=== PATIENT | female | born 2005 | race Caucasian/White ===

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

== ENCOUNTER → 2024-05-21 | Outpatient (CLI) | payer OTHER, SELFPAY ==
[2024-05-24 08:14] LABS: Chlamydia By Nucleic Acid AMP Negative (Negative); Gonococcus By Nucleic Acid AMP Negative (Negative)
== END | disposition home or self-care (01) ==
PROVIDERS: PCP Family Medicine; Referring Provider Obstetrics & Gynecology; Visit Provider Obstetrics & Gynecology
DX: Z34.00 Encounter for supervision of normal first pregnancy, unspecified trimester (principal)
CPT/HCPCS: 87086; 87491; 87591

== ENCOUNTER → 2024-05-28 | Outpatient (CLI) | payer OTHER, SELFPAY ==
[2024-05-28 12:22] LABS: Absolute Lymphocyte Count 1.53 X10^3/uL (0.83-4.51); Absolute Neutrophil Count 5.5 X10^3/uL (2.0-7.7); Basophil# 0.03 X10^3/uL; Basophil% 0.4 % (0-1); Eosinophils% 1.3 % (0-5); Hematocrit 38.9 % (37-47); Hemoglobin 12.9 g/dL (12.0-15.0); Lymphocyte # 1.53 X10^3/ul (0.83-4.51); Lymphocyte % 20.1 % (19-41); Mean Corp Hgb Conc 33.2 g/dL (32-36); Mean Corpuscular Volume 84.6 fL (81-99); Mean Platelet Vol. 8.7 fl (6.2-12.0); Monocyte# 0.38 X10^3/uL; NRBC Flagged by Analyzer 0 % (0-5); Neutrophil # 5.53 X10^3/uL (2.7-7.7); Neutrophil % 72.8 % (47-70); Platelet Count 273 K/mm3 (150-450); RBC Distribution Width CV 15.1 % (11.6-14.6); RBC Distribution Width SD 46.8 fl (35.1-43.9); White Blood Count 7.6 K/mm3 (4.4-11.0)
[2024-05-28 13:39] LABS: HIV - WCH Non-Reactive (Nonreactive); Hepatitis B Surface Antigen Non-Reactive (Nonreactive); Hepatitis C Antibody Non-Reactive (Nonreactive); Rubella IgG Reactive (Nonreactive); Syphilis Antibodies Non-reactive
== END | disposition home or self-care (01) ==
LOC: LAB 11:23
PROVIDERS: PCP Family Medicine; Referring Provider Obstetrics & Gynecology; Visit Provider Obstetrics & Gynecology
DX: Z34.01 Encounter for supervision of normal first pregnancy, first trimester (principal); Z34.81 Encounter for supervision of other normal pregnancy, first trimester
CPT/HCPCS: 36415; 85025; 86703; 86762; 86780; 86803; 86850; 86900; 86901; 87340

== ENCOUNTER → 2024-06-20 | Outpatient (CLI) | payer OTHER, SELFPAY ==
[2024-06-20 15:59] LABS: Hemoglobin A1c 4.9 % (3.8-5.6)
== END | disposition home or self-care (01) ==
LOC: WOBLAB 14:53
PROVIDERS: PCP Family Medicine; Referring Provider Advanced Practice Midwife; Visit Provider Advanced Practice Midwife
DX: Z34.00 Encounter for supervision of normal first pregnancy, unspecified trimester (principal)
CPT/HCPCS: 36415; 83036

== ENCOUNTER → 2024-10-02 | Outpatient (CLI) | payer OTHER, SELFPAY ==
[2024-10-02 11:14] LABS: Absolute Lymphocyte Count 1.72 X10^3/uL (0.83-4.51); Absolute Neutrophil Count 5.6 X10^3/uL (2.0-7.7); Basophil# 0.02 X10^3/uL; Basophil% 0.2 % (0-1); Eosinophil# 0.08 X10^3/uL; Hematocrit 31.5 % (37-47); Hemoglobin 9.9 g/dL (12.0-15.0); Lymphocyte # 1.72 X10^3/ul (0.83-4.51); Mean Corp Hgb Conc 31.4 g/dL (32-36); Mean Corpuscular Hgb 25.3 pg (27.0-32.0); Mean Corpuscular Volume 80.4 fL (81-99); Mean Platelet Vol. 8.8 fl (6.2-12.0); Monocyte# 0.65 X10^3/uL; Monocyte% 7.9 % (0-10); NRBC Flagged by Analyzer 0 % (0-5); Neutrophil # 5.63 X10^3/uL (2.7-7.7); Neutrophil % 68.7 % (47-70); Platelet Count 280 K/mm3 (150-450); RBC Distribution Width CV 13.4 % (11.6-14.6); RBC Distribution Width SD 38.5 fl (35.1-43.9); Red Blood Count 3.92 M/mm3 (4.2-5.4); White Blood Count 8.2 K/mm3 (4.4-11.0)
[2024-10-02 11:55] LABS: HIV - WCH Non-Reactive (Nonreactive); Syphilis Antibodies Non-reactive
[2024-10-02 12:06] LABS: Glucose Challenge Gest 1H 50g 80 mg/dL (70-140)
== END | disposition home or self-care (01) ==
LOC: BWCLAB 09:41
PROVIDERS: Advanced Practice Midwife; PCP Family Medicine; Referring Provider Nurse Practitioner Women's Health; Visit Provider Nurse Practitioner Women's Health
DX: Z13.1 Encounter for screening for diabetes mellitus (principal); Z3A.25 25 weeks gestation of pregnancy
CPT/HCPCS: 36415; 82950; 85025; 86703; 86780

== ENCOUNTER → 2024-10-31 | Outpatient (CLI) | payer OTHER, SELFPAY ==
[2024-10-31 17:23] LABS: Absolute Lymphocyte Count 1.78 X10^3/uL (0.83-4.51); Absolute Neutrophil Count 6.5 X10^3/uL (2.0-7.7); Basophil# 0.04 X10^3/uL; Basophil% 0.4 % (0-1); Eosinophil# 0.04 X10^3/uL; Eosinophils% 0.4 % (0-5); Hematocrit 35.2 % (37-47); Hemoglobin 10.7 g/dL (12.0-15.0); Lymphocyte # 1.78 X10^3/ul (0.83-4.51); Lymphocyte % 19.2 % (19-41); Mean Corp Hgb Conc 30.4 g/dL (32-36); Mean Corpuscular Hgb 24.1 pg (27.0-32.0); Mean Corpuscular Volume 79.3 fL (81-99); Mean Platelet Vol. 9.1 fl (6.2-12.0); Monocyte# 0.78 X10^3/uL; Monocyte% 8.4 % (0-10); NRBC Flagged by Analyzer 0 % (0-5); Neutrophil # 6.54 X10^3/uL (2.7-7.7); Neutrophil % 70.8 % (47-70); Platelet Count 296 K/mm3 (150-450); RBC Distribution Width CV 15.9 % (11.6-14.6); RBC Distribution Width SD 44.7 fl (35.1-43.9); Red Blood Count 4.44 M/mm3 (4.2-5.4); White Blood Count 9.3 K/mm3 (4.4-11.0)
== END | disposition home or self-care (01) ==
LOC: BWCLAB 13:40
PROVIDERS: Advanced Practice Midwife; PCP Family Medicine; Referring Provider Obstetrics & Gynecology; Visit Provider Obstetrics & Gynecology
DX: O99.019 Anemia complicating pregnancy, unspecified trimester (principal); Z3A.00 Weeks of gestation of pregnancy not specified
CPT/HCPCS: 36415; 85025

== ENCOUNTER → 2024-11-25 | Outpatient (CLI) | payer OTHER, SELFPAY | END | disposition home or self-care (01) | LOC: LABSPEC 15:59 | PROVIDERS: PCP Family Medicine; Referring Provider Advanced Practice Midwife; Visit Provider Advanced Practice Midwife | DX: Z34.03 Encounter for supervision of normal first pregnancy, third trimester (principal) | CPT/HCPCS: 87081 ==

== ENCOUNTER 2024-12-16 23:07 | Outpatient (CLI) | payer OTHER, SELFPAY ==
[2024-12-16 23:12] VITALS: BMI 24.2
[2024-12-16 23:17] VITALS: RESP 14; TEMP 36.8
[2024-12-16 23:18] VITALS: BP 134/84; PULSE 88; O2SAT 99
[2024-12-17 01:32] VITALS: BP 137/77; PULSE 81
[2024-12-17] MEDS: DiphenhydrAMINE 25 MG Capsule 50 MG PO (01:58)
--- NOTE | 2024-12-20 12:54 | OB.TRI.PN_ITS ---
Progress Notes Date of Service: 12/20/24 Progress Note: Patient presents for triage evaluation secondary to contractions at 39 weeks. FHT: 120 Moderate variability reactive no decelerations category I tracing [place]: irregular Contractions Assessment and plan: no cervical change, Reactive NST, reassuring maternal and status patient discharged to home to follow-up in office. See problem list details for additional plan information. Charges/Coding Multi Select Codes Urinary/Genital Urinary/Genital CPT Codes: 02579-14 non-stress test Interp Assessment & Plan (1) Uterine contractions: (2) Anemia affecting : QUALIFIERS: Trimester: third trimester Qualified Code(s): O99.013 - Anemia complicating , third trimester COMMENT: rpt CBC 10/30 stable (3) Family history of Down syndrome: COMMENT: maternal aunt with DS. NIPT low risk (4) History of anemia: COMMENT: taking ferrous sulfate daily (5) Supervision of normal first : QUALIFIERS: Trimester: third trimester Qualified Code(s): Z34.03 - Encounter for supervision of normal first , third trimester COMMENT: PRR, , BRAYAN 12/20/24, boy Abraham (secret?) Emeka (6) : QUALIFIERS: Weeks of gestation: 40 weeks Qualified Code(s): Z3A.40 - 40 weeks gestation of COMMENT: GBS neg, anatomy nl, NIPT low risk, carrier neg. declines ntd screen.
== END 2024-12-17 02:00 | disposition home or self-care (01) ==
LOC: WPOUT 23:10 → WP 23:11
PROVIDERS: PCP Family Medicine; Referring Provider Advanced Practice Midwife; Visit Provider Advanced Practice Midwife
DX: O47.1 False labor at or after 37 completed weeks of gestation (principal); Z3A.39 39 weeks gestation of pregnancy; O99.013 Anemia complicating pregnancy, third trimester; Z82.79 Family history of other congenital malformations, deformations and chromosomal abnormalities
CPT/HCPCS: 59025; 59050; 99221; G0378

== ENCOUNTER 2024-12-17 20:45 | Outpatient (CLI) | payer OTHER, SELFPAY ==
[2024-12-17 20:54] VITALS: PULSE 101; O2SAT 99
[2024-12-17 20:58] VITALS: BP 123/62; PULSE 106
[2024-12-17 23:11] VITALS: PULSE 77; RESP 16; TEMP 36.6; O2SAT 100
[2024-12-17 23:13] VITALS: BP 120/74; PULSE 83
[2024-12-18 00:36] VITALS: BMI 24.0
--- NOTE | 2024-12-25 22:32 | OB.TRI.PN ---
Progress Notes Date of Service: 12/17/24 Progress Note: Patient presents for triage evaluation secondary to contractions FHT: 130 Moderate variability reactive no decelerations category I tracing [place]: irergular Contractions Assessment and plan: false labor 39 weeks Reactive NST, reassuring maternal and status patient discharged to home to follow-up as scheudled. See problem list details for additional plan information. Charges/Coding Procedures Urinary/Genital 52xxx-59xxx: 34240-37 non-stress test Interp Assessment & Plan (1) False labor: (2) 39 weeks gestation of :
== END 2024-12-18 01:05 | disposition home or self-care (01) ==
LOC: WPOUT 20:47 → WP 20:48
PROVIDERS: PCP Family Medicine; Referring Provider Obstetrics & Gynecology; Visit Provider Obstetrics & Gynecology
DX: O47.1 False labor at or after 37 completed weeks of gestation (principal); Z3A.39 39 weeks gestation of pregnancy
CPT/HCPCS: 59025; 59050; 99221; G0378

== ENCOUNTER 2024-12-24 07:00 | Inpatient (IN) | payer OTHER, SELFPAY ==
[2024-12-24] VITALS (65 sets, daily range): BP systolic 104–149; BP diastolic 55–88; PULSE 68–125; RESP 16–17; TEMP 36.7–37.4; O2SAT 96–100; BMI 24.0
[2024-12-24] MEDS: Lactated Ringers 1,000 ML 50 ML IV (07:45)
--- NOTE | 2024-12-24 07:53 | HP.PCM.OB_ITS ---
HPI - General General Date of Admission: 12/24/24 HPI Narrative CLEO CORDON, is a 19 y/o @ 40 weeks 4 days who presents to L&D for IOL due to favorable cervix and maternal exhaustion. Maternal Data Information BRAYAN Calculator Estimated Delivery Date Method Current WG Current Estimate 12/20/24 LMP (Certain) 40w 4d PFSH PFSH Home Medications ?Medication ?Instructions ?Recorded ?Last Taken ?Type PNV 178-FA 180 mcg-om3 35 mg-dha 1 tab PO DAILY pregna ncy 05/14/24 12/23/24 History 25 mg-epa 5 mg-fish oil chew tablet ferrous sulfate 27 mg iron tablet 27 mg PO DAILY anemi a 05/14/24 12/23/24 History Allergy/AdvReac Type Severity Reaction Status Date / Time No Known Allergies Allergy Verified 12/24/24 07:35 Family History (Updated 12/20/24 @ 10:34 by Brittney Middleton) Grandmother Diabetes Paternal Grandfather Diabetes Paternal Grandmother Diabetes Maternal Sister Diabetes Aunt Down syndrome Surgical History H/O hernia repair [place] teeth extracted History of tonsillectomy Social History adopted: No household members: spouse current occupational status: employed 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 current occupational exposures/hazards: No pets and animals: Yes pets and animals: dog(s) history of recent travel: No sexually active: Yes Smoking Status: Never smoker alcohol intake: never substance use type: does not use well-balanced diet: daily or most days caffeine: No eating out: 1-3 times/week during the past year weight has: remained stable what type of physical activity do you participate in: none april/mosque: Congregational seatbelt use: always do you feel safe at home: Yes additional social history: Emeka- Trigence History 1 Elective abortions Hx Para 0 Spontaneous abortions Hx # Term Pregnancies Ectopic pregnancies Hx # Pregnancies Multiple births # of living children Visit Details Expected Delivery Route/Plan Labor Preferences- CB/BF classes: encouraged labor support person: Emeka labor intervention preferences: [] pain management options preferred: epidural cut cord/dad catch: maybe : yes PP control planned: discussed discussed possible routes of delivery and associated risks: [] special requests: [] Plans Covid status: [] Flu vaccine: declined Tdap vaccine: given Rhogam: na LARC form signed: yes Problem list reviewed and updated with the most current plan of care details and appropriate orders placed. Relevant counseling for the gestational age provided. Continue routine care and follow up unless otherwise noted in visit notes/problem list details OB Flowsheet Initial Weight: Not Recorded Date -?-?-?-?-?-?-?-?-?-?-?-?- EGA Weight BP Urine Prot -?-?-?-?-?-?-?-?-?-?-?-?- Glucose FHR FuHt Pres Dilation -?-?-?-?-?-?-?-?-?-?-?-?- Effaced St Visit Note 05/21/24 -?-?-?-?-?-?-?-?-?-?-?-?- 9w 4d 118 lb 121/75 -?-?-?-?-?-?-?-?-?-?-?-?- 180 -?-?-?-?-?-?-?-?-?-?-?-?- SM- CRL- 2.35cm cons with lmp 06/20/24 -?-?--?-?-?-?-?-?-?-?-?-?- 13w 6d 118 lb 4 oz 112/73 Nega tive -?-?-?-?-?-?-?-?-?-?-?-?- Negative 155 -?-?-?-?-?-?-?-?-?-?-?-?- KW- no vb/crampi ng. discussed AFP. declines at this time. anatomy US ordered. KW- no vb/cramping. discusse d AFP. declines at this time. anatomy US ordered. requesting A1C for family hx of DM. 07/18/24 -?-?-?-?-?-?-?-?-?-?-?-?- 17w 6d 122 lb 105/65 Negative -?-?-?-?-?-?-?-?-?-?-?-?- Negative 155 -?-?-?-?-?-?-?-?-?-?-?-?- SM- no vb crampi ng 08/14/24 -?-?-?-?-?-?-?-?-?-?-?-?- 21w 5d 126 lb 6 oz 115/69 Nega tive -?-?-?-?-?-?-?-?-?-?-?-?- Negative 150 -?-?-?-?-?-?-?-?-?-?-?-?- SM- no vb lof go od fm nro eualr ctx 09/12/24 -?-?-?-?-?-?-?-?-?-?-?-?- 25w 6d 136 lb 4 oz 122/78 Nega tive -?-?-?-?-?-?-?-?-?-?-?-?- Negative 145 25 -?-?-?-?-?-?-?-?-?-?-?-?- KW- no vb/lof/ct x. good fm. 28 week labs discussed. 10/02/24 -?-?-?-?-?-?-?-?-?-?-?-?- 28w 5d 141 lb 110/72 Negative -?-?-?-?-?-?-?-?-?-?-?-?- Negative 168 27 -?-?-?-?-?-?-?-?-?-?-?-?- MH-No VB, LOF. G ood FM. Larc, tdap. 28 wk labs pending 10/15/24 -?-?-?-?-?-?-?-?-?-?-?-?- 30w 4d 143 lb 8 oz 102/67 Nega tive -?-?-?-?-?-?-?-?-?-?-?-?- Negative 158 29 -?-?-?-?-?-?-?-?-?-?-?-?- JV- pt is taking iron. passed her GCT but anemic at hg 9.9. Will rpt cbc next visit (one month of taking iron) 10/31/24 -?-?-?-?-?-?-?-?-?-?-?-?- 32w 6d 143 lb 6 oz 124/75 Nega tive -?-?-?-?-?-?-?-?-?-?-?-?- Negative 130 32 -?-?-?-?-?-?-?-?-?-?-?-?- SM- no vb lof go od fm no regular ctx 11/13/24 -?-?-?-?-?-?-?-?-?-?-?-?- 34w 5d 146 lb 2 oz 108/70 Trac e -?-?-?-?-?-?-?-?-?-?-?-?- 131 34 -?-?-?-?-?-?-?-?-?-?-?-?- MH-NO VB, LOF. G ood FM. No concerns 11/25/24 -?-?-?-?-?-?-?-?-?-?-?-?- 36w 3d 150 lb 6 oz 120/88 Nega tive -?-?-?-?-?-?-?-?-?-?-?-?- Negative 145 35 Cephalic 1 -?-?-?-?-?-?-?-?-?-?-?-?- 70 -2 KW- no vb/ lof/ctx. good fm. hand expression handout given. GBS today. 12/06/24 -?-?-?-?-?-?-?-?-?-?-?-?- 38w 0d 150 lb 2 oz 118/72 Trac e -?-?-?-?--?-?-?-?-?-?-?-?- Negative 149 35 Cephalic 1 .5 -?-?-?-?-?-?-?-?-?-?-?-?- 80 -2 -1 JV- no lof, vag inal bleeding, or dec fm. JV- no lof, vaginal bleeding , or dec fm. MAGALI is 10, head is low. patient reassured, kick counts reviewed. 12/13/24 -?-?-?-?-?-?-?-?-?-?-?-?- 39w 0d 149 lb 2 oz 121/72 Nega tive -?-?-?-?-?-?-?-?-?-?-?-?- Negative 125 38 Cephalic 3 -?-?-?-?-?-?-?-?-?-?-?-?- 80 -2 KW- no vb/ lof/ctx. good fm. doing well today. requesting membrane sweep. discussed R/B. 12/20/24 -?-?-?-?-?-?-?-?-?-?-?-?- 40w 0d 149 lb 112/79 -?-?-?-?-?-?-?-?-?-?-?-?- 135 38.5 Cephalic 4 -?-?-?-?-?-?-?-?-?-?-?-?- 80 -1 JV- no lof , vaginal bleeding, or dec fm. pt is requesting IOL at next opening. ROS Constitutional Constitutional: Denies change in weight, fatigue, fever(s), headache(s), poor appetite or weakness Eyes Eyes: Denies blurry vision, change in vision, seeing flashes or spots in vision ENT HEENT: Denies dizziness, headache(s), loss taste/smell or sore throat Cardiovascular Cardiovascular: Denies chest pain, dizziness, dyspnea, irregular heart rhythm, leg edema, palpitations, rapid heart rate or vomiting Respiratory/Chest Respiratory/Chest: Denies chest tightness, cough, dyspnea or breast pain Gastrointestinal Gastrointestinal: Denies abdominal pain, anorexia, constipation, cramping, diarrhea, hemorrhoids, vomiting or weight changes Genitourinary Genitourinary: Denies dysuria, flank pain, genital lesions, genital pain, urinary frequency or urinary urgency Musculoskeletal Musculoskeletal: Denies back pain, difficulty walking, joint pain, limited range of motion, muscle cramps or numbness Integumentary Integumentary: Denies lesions or unusual bruising Neurologic Neurologic: Denies abnormal movements, abnormal speech, dizziness, numbness, seizure-like activity or syncope Psychiatric Psychiatric: Denies anxiety, behavioral changes, change in appetite, change in libido, cognitive impairment, confusion, depression, difficulty concentrating, hallucinations or suicidal thoughts Endocrine Endocrinology: Denies excessive sweating, polydipsia or polyuria Hematologic/Lymphatic Hematologic/Lymphatic: Denies easy bleeding, easy bruising or lymphadenopathy Allergic/Immunologic Allergic/Immunologic: Denies itchy eyes, lip swelling, seasonal rhinorrhea, rhinitis, throat swelling, tongue swelling, eczemia, wheezing or asthma Vital Signs Vital Signs Vital Signs: 12/24/24 07:22 12/24/24 07:22 12/24/24 07:22 Pulse Rate 85 Respiratory Rate 16 Blood Pressure 130/74 H BP Systolic 130 BP Diastolic 74 Pulse Ox 12/24/24 07:22 Pulse Rate Respiratory Rate Blood Pressure BP Systolic BP Diastolic Pulse Ox 98 Weight Weight: 149 lb Body Mass Index (BMI) 24.0 Physical Exam Const alert, oriented x3, no apparent distress and healthy appearing General Appearance: cooperative; Negative for anxious HEENT normocephalic Face and Sinus: normal facial exam Eyes EOMs intact bilaterally and no scleral icterus General Eye: normal appearance of both eyes Neck full ROM and supple Lymph Lymphatic: no lymphadenopathy noted Chest Chest: abnormal inspection of the chest Resp normal respiratory effort Effort and Inspection: able to speak in complete sentences Cardio regular rate GI soft to palpation and non-tender Inspection: gravid Palpation: soft; Negative for tender Back/Spine no CVA tenderness Extremity normal to inspection, full ROM and no clubbing, cyanosis or edema General Extremity: Negative for calf tenderness or edema Skin Lesions: no lesions Rashes: no rashes Psych mental status grossly normal Labs Labs Labs: Blood Type A POSITIVE Antibody Screen NEGATIVE Hct 35.2 % (37-47) L Hgb 10.7 g/dL (12.0-15.0) L Syphilis Total Ab Non-reactive Rubella IgG Antibody Reactive (Nonreactive) Hep Bs Antigen Non-Reactive (Nonreactive) Hepatitis C Antibody Non-Reactive (Nonreactive) Chlamydia DNA ([facility]) Negative (Negative) N.gonorrhoeae DNA ([facility]) Negative (Negative) HIV 1&2 Antibody Non-Reactive (Nonreactive) Glucose 1 Hr 50 gm 80 mg/dL (70-140) Assessment & Plan (1) Anemia affecting : QUALIFIERS: Trimester: third trimester Qualified Code(s): O99.013 - Anemia complicating , third trimester COMMENT: rpt CBC 10/30 stable (2) Family history of Down syndrome: COMMENT: maternal aunt with DS. NIPT low risk (3) History of anemia: COMMENT: taking ferrous sulfate daily (4) Supervision of normal first : QUALIFIERS: Trimester: third trimester Qualified Code(s): Z34.03 - Encounter for supervision of normal first , third trimester COMMENT: PRR, , BRAYAN 12/20/24, boy Abraham (secret?) Emeka (5) : QUALIFIERS: Weeks of gestation: 40 weeks Qualified Code(s): Z3A.40 - 40 weeks gestation of COMMENT: GBS neg, anatomy nl, NIPT low risk, carrier neg. declines ntd screen. PLAN: Plan Patient presents IOL, plan management for with pitocin/AROM. Pain management: plans epidural. GBS negative. Management of any complications: none I have reviewed the [facility] and made any clinically relevant updates.
[2024-12-24 08:05] LABS: Absolute Lymphocyte Count 2.52 X10^3/uL (0.83-4.51); Absolute Neutrophil Count 6.8 X10^3/uL (2.0-7.7); Basophil# 0.03 X10^3/uL; Basophil% 0.3 % (0-1); Eosinophil# 0.03 X10^3/uL; Eosinophils% 0.3 % (0-5); Hematocrit 36.5 % (37-47); Hemoglobin 11.5 g/dL (12.0-15.0); Lymphocyte # 2.52 X10^3/ul (0.83-4.51); Mean Corp Hgb Conc 31.5 g/dL (32-36); Mean Corpuscular Hgb 23.6 pg (27.0-32.0); Mean Corpuscular Volume 74.8 fL (81-99); Mean Platelet Vol. 9.8 fl (6.2-12.0); Monocyte# 0.67 X10^3/uL; Monocyte% 6.6 % (0-10); NRBC Flagged by Analyzer 0 % (0-5); Neutrophil # 6.78 X10^3/uL (2.7-7.7); Neutrophil % 67.3 % (47-70); Platelet Count 257 K/mm3 (150-450); RBC Distribution Width CV 19.7 % (11.6-14.6); RBC Distribution Width SD 51.9 fl (35.1-43.9); Red Blood Count 4.88 M/mm3 (4.2-5.4); White Blood Count 10.1 K/mm3 (4.4-11.0)
[2024-12-24] MEDS: Oxytocin 15 Units/NS 250ml 15 UNITS/250 ML IV.SOLN 2 UNITS IV (08:11)
[2024-12-24 08:34] LABS: Syphilis Antibodies Nonreactive (Nonreactive)
[2024-12-24] MEDS: Lactated Ringers 1,000 ML 999 ML IV (09:00)
[2024-12-24] MEDS: fentaNYL-bupivacaine (epidural) 100 ML BAG EPIDURAL ×2 (10:09→14:48)
[2024-12-24] MEDS: Lactated Ringers 1,000 ML 200 ML IV (12:10)
--- NOTE | 2024-12-24 17:57 | OB.VAGDELI_ITS ---
Assessment & Plan (1) Anemia affecting : QUALIFIERS: Trimester: third trimester Qualified Code(s): O99.013 - Anemia complicating , third trimester COMMENT: rpt CBC 10/30 stable (2) Family history of Down syndrome: COMMENT: maternal aunt with DS. NIPT low risk (3) History of anemia: COMMENT: taking ferrous sulfate daily (4) Supervision of normal first : QUALIFIERS: Trimester: third trimester Qualified Code(s): Z34.03 - Encounter for supervision of normal first , third trimester COMMENT: PRR, , BRAYAN 12/20/24, nadia Rosario (secret?) Emeka (5) : QUALIFIERS: Weeks of gestation: 40 weeks Qualified Code(s): Z3A.40 - 40 weeks gestation of COMMENT: GBS neg, anatomy nl, NIPT low risk, carrier neg. declines ntd screen. Maternal Data Information BRAYAN Calculator Estimated Delivery Date Method Current WG Current Estimate 12/20/24 LMP (Certain) 40w 4d Final BRAYAN Source: LMP Gestational age: 40 weeks 4 days [place] Doctor Who Attended Delivery: Wendy Jackman Vaginal Delivery Maternal Presentation Maternal Presentation: Elective Induction Type of Induction: Pitocin and Amniotomy Vaginal Delivery Information Procedure Performed: Spontaneous Vaginal Delivery Surgeon/Practitioner: January Stephens Date of Procedure: 12/24/24 Pre-Procedure Diagnosis: 40 weeks 4 days, maternal exhaustion, Post-Procedure Diagnosis: 40 weeks 4 days, maternal exhaustion, Type of anesthesia: Epidural Estimated Blood Loss: 200cc Time of Delivery: 17:40 Findings Description of procedure: Patient began pushing and delivered the head in the PIERRE presentation. The head was delivered atraumatically. The anterior and posterior shoulders delivered without complication followed by the rest of the infant and the was placed on the maternal abdomen. Delayed cord clamping was employed for approximately 60 seconds. Cord was clamped and cut and gentle traction was applied to the cord and the placenta delivered spontaneously immediately following it was noted to be intact with three-vessel cord. The perineum and vagina were inspected and noted to have a small right vaginal wall laceration. This was repaired with a 3-0 vicryl. EBL was 200 cc. Patient and infant tolerated delivery well. Procedure findings: viable male Rosario Presentation: Vertex Amniotic Fluid Description: Lightly stained meconium Placental Delivery Description: Spontaneous Placenta Disposition: [facility] Specimen collected: No Cord Vessel Description: 3 Vessels Cord Entanglement: None A Gender: Male (1 minute): 8 (5 minute): 9 Delayed Cord Clamping: Yes Mobile Ui/Ux Designer windows architect: No Post Vaginal Deli Medications given after delivery: IV Pitocin Episiotomy Description: None Laceration: Vaginal Extension/lac Complication Complications: No Multi Select Codes Urinary/Genital Urinary/Genital CPT Codes: 83408 Vaginal Delivery [facility]
--- NOTE | 2024-12-24 17:59 | DCINST_ITS ---
Discharge Instructions Diet Discharge Diet: No restrictions DC O2, CPAP, BIPAP needs Home O2 Discharge instructions: No Dressing / Incision Discharge Activity: Return to Normal Activity, May Not Drive (while taking narcotic pain medications.) and May Shower May resume sexual activity in: 4-6 weeks Dressing / Incision Call your doctor if your incision/area has: Continuous Slow Oozing, Sudden Increased Bleeding, Increased Pain/ Swelling, Increased Redness and Foul Smelling Discharge Follow Up Care Please Follow Up With: January Stephens DO When: Call [phone] to make an appointment with your doctor in 6 weeks. If you had elevated blood pressure or 4th degree laceration, you will need to be seen in 2 weeks. Test Results: Test results from this visit will be discussed in further detail at your follow- up appointment, if applicable. Discharge Plan Admission Admit Date/Time: 12/24/24 07:00 Attending Provider: January Stephens Primary Care Provider: Francisco Julian Discharge Orders/Prescriptions Prescriptions: No Action PNV no.[id number] 180 mcg-35 mg- 25 mg-5 mg tablet,chewable 1 tab PO DAILY ferrous sulfate 27 mg iron tablet 27 mg PO DAILY Referrals / Follow Up: Francisco Julian MD [Primary Care Provider] -
[2024-12-24] MEDS: Oxytocin 15 Units/NS 250ml 15 UNITS/250 ML IV.SOLN 83 UNITS IV (18:14)
[2024-12-25] VITALS (10 sets, daily range): BP systolic 116–133; BP diastolic 62–73; PULSE 86–116; RESP 14–16; TEMP 36.4–37; O2SAT 98–99
--- NOTE | 2024-12-25 07:24 | PCM.PN.OB ---
Subjective Subjective Patient doing well without complaints. Tolerating PO. Ambulating and voiding without difficulty. feeding well. Denies chest pain, shortness of breath, calf pain/swelling, fevers, chills, lightheadedness. Objective Data Objective Data Vital Signs: Vital Signs Temp Pulse Resp BP Pulse Ox O2 Del Method 98 F 116 H 14 133/73 H 98 Room Air 12/25/24 04:20 12/25/24 07:17 12/25/24 04:20 12/25/24 07:17 12/25/24 07:17 12/25/24 04:20 Oxygen Delivery Method Room Air Weight: 149 lb Body Mass Index (BMI) 24.0 Intake & Output: Intake and Output for Last 24 Hours 12/23/24 12/24/24 12/25/24 23:59 23:59 23:59 Intake Total 2401.09 / 2401.09 Output Total 1000 / 1000 902 / 902 Balance 1401.09 / 1401.09 -902 / -902 Lab / Micro Data 12/24/24 07:50 Labs: Laboratory Results - last 24 hr 12/24/24 07:50: WBC 10.1, RBC 4.88, Hgb 11.5 L, Hct 36.5 L, MCV 74.8 L, MCH 23.6 L, MCHC 31.5 L, RDW Std Deviation 51.9 H, RDW Coeff of Lety 19.7 H, Plt Count 257, MPV 9.8, Immature Gran % (Auto) 0.500, Neut % (Auto) 67.3, Lymph % (Auto) 25.0, [place] % (Auto) 6.6, Eos % (Auto) 0.3, Baso % (Auto) 0.3, Absolute Neuts (auto) 6.8, Absolute Lymphs (auto) 2.52, Nucleated RBC % 0, Syphilis Total Ab Nonreactive, Blood Type A POSITIVE, Antibody Screen NEGATIVE ROS Constitutional Constitutional: Reports systems reviewed and no addt'l complaints, except as documented Cardiovascular Cardiovascular: Reports systems reviewed and no addt'l complaints, except as documented Respiratory/Chest Respiratory/Chest: Reports systems reviewed and no addt'l complaints, except as documented Gastrointestinal Gastrointestinal: Reports systems reviewed and no addt'l complaints, except as documented Physical Exam Const alert, oriented x3 and no apparent distress HEENT Head and Scalp: atraumatic Resp normal respiratory effort GI soft to palpation and non-tender Bimanual Exam - Vag & Uterus: uterus non-tender Uterus Palpation: uterus fundus firm (below Umbilicus) Assessment & Plan (1) Vaginal delivery: COMMENT: KATLYN- baby nadia Rosario PLAN: Plan s/p PPD # 1 1. routine post delivery care 2. breast feeding- support given 3. rh positive 4. rubella immune
[2024-12-25] MEDS: Ibuprofen 600 MG Tablet PO ×3 (07:28→21:52)
[2024-12-26 01:45] VITALS: BP 131/62; PULSE 80
[2024-12-26 02:00] VITALS: BP 131/62; PULSE 90; RESP 16; TEMP 37; O2SAT 98
[2024-12-26] MEDS: Ibuprofen 600 MG Tablet PO (06:26)
--- NOTE | 2024-12-26 07:46 | DS.PCM_ITS ---
Providers Date of Admission: 12/24/24 Primary Care Physician: Dr. Francisco Julian MD Reason For Visit: VAGINAL DELIVERY Diagnosis Discharge Diagnosis (1) Vaginal delivery: Status: Acute Code(s): O80 - Encounter for full-term uncomplicated delivery Plan Patient presents IOL, plan management for with pitocin/AROM. Pain management: plans epidural. GBS negative. Management of any complications: none I have reviewed the COUNTS INCLUDE 234 BEDS AT THE [facility] and made any clinically relevant updates. Medications at Discharge Home Medications PNV 178-FA 180 mcg-om3 35 mg-dha 25 mg-epa 5 mg-fish oil chew tablet 1 tab PO DAILY 05/14/24 ferrous sulfate 27 mg iron tablet 27 mg PO DAILY anemia 05/14/24 Hospital Course Operations None Procedures - (vaginal delivery ) Summary of Care Provided Minutes Spent on Discharge: 10 Hospital Course: the patient was admitted to L&D on 12/24/24 for active labor management and delivered within 12 hours. She recovered well on day #1 and required some breast feeding assistance and help with the baby from nurses to rest. On the morning of day #2, 12/26/24 she stated that she was ready to go home. Physical Exam HEENT normocephalic Resp normal respiratory effort and normal air movement GI soft to palpation, non-tender and non-distended no CVA tenderness Extremity normal to inspection General Extremity: edema bilateral (trace ) Weight / BMI Weight Weight: 149 lb Body Mass Index (BMI) 24.0 ABG / Lab / Microbiology Data 12/24/24 07:50 D/C Instructions Discharge Diet: No restrictions Discharge Activity: Return to Normal Activity, May Not Drive (while taking narcotic pain medications.) and May Shower May resume sexual activity in: 4-6 weeks Call your doctor if your incision/area has: Continuous Slow Oozing, Sudden Increased Bleeding, Increased Pain/ Swelling, Increased Redness and Foul Smelling Discharge DC O2, CPAP, BIPAP Needs Home O2 Discharge instructions: No Please Follow Up With: January Stephens DO When: Call [phone] to make an appointment with your doctor in 6 weeks. If you had elevated blood pressure or 4th degree laceration, you will need to be seen in 2 weeks. Meaningful Use Info Meaningful Use Meaningful Use Diagnoses (Choose all that apply): None applicable Ischemic Stroke Statin Dosing Therapy Reference: STATIN DOSE THERAPY REFERENCE: * Patients > 75 years receive moderate or high dose statin therapy. * Patients 75 years or YOUNGER should receive HIGH intensity statin dose unless contraindicated. You will be required to document reason for non-treatment if statin daily dose does not meet guidelines. HIGH DOSE STATIN THERAPY DAILY Atorvastatin > than or = to 40 mg Rosuvastatin > than or = to 20 mg Amlodipine + Atorvastatin > than or = to 2.5/40 mg Ezetimibe + Simvastatin 10/80 mg Simvastatin 80mg Discharge Plan Admission Admit Date/Time: 12/24/24 07:00 Primary Reason for Your Visit: vaginal delivery Attending Provider: January tSephens Primary Care Provider: Francisco Julian Discharge Orders/Prescriptions Prescriptions: No Action PNV no.[id number] 180 mcg-35 mg- 25 mg-5 mg tablet,chewable 1 tab PO DAILY ferrous sulfate 27 mg iron tablet 27 mg PO DAILY Referrals / Follow Up: Francisco Julian MD [Primary Care Provider] - Disposition Disposition (needs filled in before D/C Order can be placed): Home, Self Care
[2024-12-26 07:53] VITALS: BP 124/67; PULSE 72
[2024-12-26 08:00] VITALS: BP 124/67; PULSE 72; RESP 16; TEMP 36.9
== END 2024-12-26 10:00 | disposition home or self-care (01) | DRG 807 ==
PROVIDERS: Admitting Provider Obstetrics & Gynecology; PCP Family Medicine; Referring Provider Obstetrics & Gynecology; Visit Provider Obstetrics & Gynecology
DX: O75.81 Maternal exhaustion complicating labor and delivery (principal); Z37.0 Single live birth; O77.0 Labor and delivery complicated by meconium in amniotic fluid; O99.02 Anemia complicating childbirth; O71.4 Obstetric high vaginal laceration alone; Z3A.40 40 weeks gestation of pregnancy; Z79.899 Other long term (current) drug therapy
CPT/HCPCS: 59025; 59050; 85025; 86780; 86850; 86900; 86901; 99221; G0378

== ENCOUNTER → 2025-02-05 | Outpatient (CLI) | payer OTHER, SELFPAY ==
[2025-02-09 10:28] LABS: HPV Reflexed? NOT INDICATED
== END | disposition home or self-care (01) ==
LOC: LABSPEC 15:25
PROVIDERS: PCP Family Medicine; Referring Provider Nurse Practitioner Women's Health; Visit Provider Nurse Practitioner Women's Health
DX: Z12.4 Encounter for screening for malignant neoplasm of cervix (principal)
CPT/HCPCS: 88175; G0145